=== PATIENT | female | born 1990 | race Caucasian/White ===

== ENCOUNTER 2016-04-11 21:50 | Emergency (ER) | payer OTHER ==
[2016-04-11 22:49] VITALS: BP 121/76
== END 2016-04-12 00:38 | disposition left against medical advice (07) ==
LOC: ER 21:50
DX: Z53.21 Procedure and treatment not carried out due to patient leaving prior to being seen by health care provider (principal)

== ENCOUNTER 2016-10-30 22:11 | Emergency (ER) | payer OTHER ==
[2016-10-30 22:41] VITALS: BP 113/70
== END 2016-10-31 01:26 | disposition left against medical advice (07) ==
LOC: ER 22:11
DX: Z53.21 Procedure and treatment not carried out due to patient leaving prior to being seen by health care provider (principal)

== ENCOUNTER 2018-04-14 11:52 | Emergency (ER) | payer SELFPAY ==
--- NOTE | 2018-04-14 12:08 | ER Document Report ---
ED Medical Screen (RME) - General Chief Complaint: Cyst Stated Complaint: POSSIBLE ABSCESS Time Seen by Provider: 04/14/18 12:07 Mode of Arrival: Ambulatory Information source: Patient TRAVEL OUTSIDE OF THE [place] IN LAST 30 DAYS: No - HPI Patient complains to provider of: Bartholin's cyst Onset: Other - pt. with recurring Barlothin's gland cyst over the past few weeks. Has been drained in the past - Related Data Allergies/Adverse Reactions: Penicillins Allergy (Verified 08/07/14 20:13) Past Medical History - Past Medical History Cardiac Medical History: Denies: Hx Coronary Artery Disease, Hx Heart Attack, Hx Hypertension Pulmonary Medical History: Reports: Hx Asthma Denies: Hx Bronchitis, Hx COPD, Hx Pneumonia Neurological Medical History: Denies: Hx Cerebrovascular Accident, Hx Seizures Renal/ Medical History: Denies: Hx Peritoneal Dialysis Musculoskeltal Medical History: Denies Hx Arthritis Past Surgical History: Reports: Hx Hysterectomy - Immunizations Immunizations up to date: Yes Hx Diphtheria, Pertussis, Tetanus Vaccination: Yes Physical Exam - Vital signs Vitals: Temp Pulse Resp BP Pulse Ox 98.6 F 92 18 131/81 H 96 04/14/18 12:02 04/14/18 12:02 04/14/18 12:02 04/14/18 12:02 04/14/18 12:02 Course - Vital Signs Vital signs: Temp Pulse Resp BP Pulse Ox 98.6 F 92 18 131/81 H 96 04/14/18 12:02 04/14/18 12:02 04/14/18 12:02 04/14/18 12:02 04/14/18 12:02
[2018-04-14 12:40] LABS: ABSOLUTE BASOPHILS # (AUTO) 0.1 10^3/uL (0.0-0.2); ABSOLUTE EOSINOPHILS # (AUTO) 0.3 10^3/uL (0.0-0.6); ABSOLUTE LYMPHOCYTES (AUTO) 1.9 10^3/uL (0.5-4.7); ABSOLUTE MONOCYTES (AUTO) 0.6 10^3/uL (0.1-1.4); ABSOLUTE NEUT (AUTO) 5.7 10^3/uL (1.7-8.2); BASOPHILS % (AUTO) 0.9 % (0-2); EOSINOPHILS % (AUTO) 3.6 % (0-6); HEMATOCRIT 39.5 % (36.0-47.0); HEMOGLOBIN 13.7 g/dL (12.0-15.5); LYMPHOCYTES % (AUTO) 21.7 % (13-45); MEAN CORPUSCULAR HEMOGLOBIN 30.2 pg (27.0-33.4); MEAN CORPUSCULAR HGB CONC 34.6 g/dL (32.0-36.0); MEAN CORPUSCULAR VOLUME 87 fl (80-97); MONOCYTES % (AUTO) 7.1 % (3-13); PLATELET COUNT 236 10^3/uL (150-450); RED BLOOD COUNT 4.52 10^6/uL (3.72-5.28); RED CELL DISTRIBUTION WIDTH 14.1 % (11.5-14.0); SEGMENTED NEUTROPHILS % (AUTO) 66.7 % (42-78); TOTAL CELLS COUNTED % (AUTO) 100 %; WHITE BLOOD COUNT 8.6 10^3/uL (4.0-10.5)
[2018-04-14 12:45] LABS: APPEARANCE,URINE CLOUDY; BILIRUBIN,URINE NEGATIVE (NEGATIVE); COLOR,URINE AMBER; GLUCOSE, URINE NEGATIVE (NEGATIVE); KETONES,URINE TRACE mg/dL (NEGATIVE); LEUKOCYTE ESTERASE,URINE TRACE (NEGATIVE); NITRITE,URINE NEGATIVE (NEGATIVE); PROTEIN,URINE 30 mg/dL (NEGATIVE); URINE SPECIFIC GRAVITY 1.028
[2018-04-14 12:59] LABS: ALANINE AMINOTRANSFERASE 24 U/L (9-52); ALBUMIN 4.5 g/dL (3.5-5.0); ALKALINE PHOSPHATASE 61 U/L (38-126); ANION GAP 8 (5-19); ASPARTATE AMINO TRANSFERASE 22 U/L (14-36); BILIRUBIN,DIRECT 0.2 mg/dL (0.0-0.4); BILIRUBIN,TOTAL 0.4 mg/dL (0.2-1.3); BLOOD UREA NITROGEN 9 mg/dL (7-20); CALCIUM 9.6 mg/dL (8.4-10.2); CARBON DIOXIDE 30 mmol/L (22-30); CHLORIDE 102 mmol/L (98-107); GLUCOSE 90 mg/dL (75-110); POTASSIUM 4.6 mmol/L (3.6-5.0); TOTAL PROTEIN 7.2 g/dL (6.3-8.2)
[2018-04-14] MEDS ORDERED: MORPHINE SULFATE 10 MG/ML INJ IM ONE (15:48)
[2018-04-14] MEDS ORDERED: ONDANSETRON 4 MG TAB.RAPDIS PO ONE (15:49)
[2018-04-14] MEDS ORDERED: LIDOCAINE 1%/EPINEPHRINE INJ 20 ML VIAL INJ ONE (15:49)
--- NOTE | 2018-04-14 15:56 | ER Document Report ---
ED General - General Chief Complaint: Cyst Stated Complaint: POSSIBLE ABSCESS Time Seen by Provider: 04/14/18 12:07 Primary Care Provider: CHICO JORDAN MD [Primary Care Provider] - Follow up as needed Mode of Arrival: Ambulatory Information source: Patient TRAVEL OUTSIDE OF THE [place] IN LAST 30 DAYS: No - HPI Patient complains to provider of: Recurrent Bartholin's abscess Onset: Other - Past 2-3 days Onset/Duration: Sudden Quality of pain: No pain, Sharp Severity: Severe Pain Level: 4 Associated symptoms: Chills, Fever, Vomiting Exacerbated by: Denies, Movement, Walking Relieved by: Denies Similar symptoms previously: No Recently seen / treated by doctor: No Notes: Patient is a 27-year-old female coming in today with chief complaint of recurrent right Bartholin's gland abscesses. She describes multiple different procedures that she has had done by her primary care doctor. None of these is been successful and fully alleviating the abscess. Patient reports fevers chills and vomiting although really none today. She has no chronic medical problems - Related Data Allergies/Adverse Reactions: Penicillins Allergy (Verified 08/07/14 20:13) Past Medical History - General Information source: Patient - Social History Smoking Status: Current Every Day Smoker Family History: Reviewed & Not Pertinent Patient has suicidal ideation: No Patient has homicidal ideation: No - Past Medical History Cardiac Medical History: Denies: Hx Coronary Artery Disease, Hx Heart Attack, Hx Hypertension Pulmonary Medical History: Reports: Hx Asthma Denies: Hx Bronchitis, Hx COPD, Hx Pneumonia Neurological Medical History: Denies: Hx Cerebrovascular Accident, Hx Seizures Renal/ Medical History: Denies: Hx Peritoneal Dialysis Musculoskeletal Medical History: Denies Hx Arthritis Past Surgical History: Reports: Hx Hysterectomy - Immunizations Immunizations up to date: Yes Hx Diphtheria, Pertussis, Tetanus Vaccination: Yes Review of Systems - Review of Systems Notes: Constitutional: No fevers. No chills. EENT: No eye redness. No eye pain. No ear pain. No sore throat. Cardiovascular: No chest pain. No palpitations. Respiratory: No cough. No shortness of breath. No respiratory distress. Gastrointestinal: No abdominal pain. No nausea, vomiting, or diarrhea. Genitourinary: Positive vaginal abscess Musculoskeletal: Atraumatic. No swelling. No deformities. Skin: No rash or lesions. Lymphatic: No swollen lymph nodes. Neurologic: No headache. No syncope. Psychiatric: No suicidal or homicidal ideation. Physical Exam - Vital signs Vitals: Temp Pulse Resp BP Pulse Ox 98.6 F 92 18 131/81 H 96 04/14/18 12:02 04/14/18 12:02 04/14/18 12:02 04/14/18 12:02 04/14/18 12:02 - Notes Notes: General: Well-developed, well-nourished. In no acute distress. Non-toxic appearing. Cardiac: Well-perfused. Regular rate and rhythm. No murmurs, rubs, or gallops. Pulmonary: No respiratory distress. No cyanosis. Bilateral lung fiels are clear to auscultation. Abdominal: Non-distended. Non-rigid. Bowels sounds are present in all four quadrants. No guarding or rebound. HEENT: Head is atraumatic. Conjunctivae not reddened. No tearing. PERRL. EOMI. Orbits atraumatic. No periorbital swelling or erythema. Oropharynx is without erythema, swelling, or exudates. Neck: Supple. No adenopathy. No meningismus. Dermatologic: Warm with good turgor. No rash. Atraumatic. Chest: Atraumatic. No chest wall tenderness to palpation. Musculoskeletal: Moves all extremities well. No range of motion deficits. no muscular or joint tenderness. No paraspinal muscle tenderness. no midline spinal tenderness or step-off. Genitourinary: Large swollen erythematous exquisitely tender abscess at the right labia approximately 7:00. Neurologic: No gross neurologic deficits. Psychiatric: Normal mood. Course - Re-evaluation Re-evalutation: 04/14/18 15:54 We will pretreat with some morphine and Zofran and then incise and drain the abscess. Will refer her to gynecology for second opinion regarding the further management of this. - Vital Signs Vital signs: Temp Pulse Resp BP Pulse Ox 98.6 F 92 18 131/81 H 96 04/14/18 12:02 04/14/18 12:02 04/14/18 12:02 04/14/18 12:02 04/14/18 12:02 - Laboratory Result Diagrams: 04/14/18 12:20 04/14/18 12:20 Laboratory results interpreted by me: 04/14/18 04/14/18 12:20 12:20 RDW 14.1 H Urine Protein 30 H Urine Ketones TRACE H Urine Urobilinogen 2.0 H Ur Leukocyte Esterase TRACE H Discharge - Discharge Clinical Impression: Bartholin's gland abscess Condition: Good Disposition: HOME, SELF-CARE Instructions: Bartholin Gland Cyst or Abscess ([facility]) Additional Instructions: Please follow-up with gynecology for second opinion if desired. Packing needs to be removed in 2 days. Feel free to return to the ED if you need to at this rechecked. Prescriptions: Doxycycline Hyclate 100 mg PO BID 10 Days #20 capsule Oxycodone HCl 5 mg PO Q6H #10 capsule Referrals: CHICO JORDAN MD [Primary Care Provider] - Follow up as needed
[2018-04-14 17:09] VITALS: BP 111/80
== END 2018-04-14 17:05 | disposition home or self-care (01) ==
LOC: ER 11:52
DX: N75.1 Abscess of Bartholin's gland (principal); Z88.0 Allergy status to penicillin; J45.909 Unspecified asthma, uncomplicated; F17.200 Nicotine dependence, unspecified, uncomplicated
CPT/HCPCS: 99283; 96372; 36415; 85025; 80053; 81001; 56420; S0119; J3490; J2270